=== PATIENT | male | born 1995 | race Caucasian/White ===

== ENCOUNTER 2017-01-08 11:56 | Emergency (ER) | payer BC ==
[2017-01-08 12:55] VITALS: BP 140/77
--- NOTE | 2017-01-08 13:14 | UC ---
Abdominal Pain Male HPI - HPI Summary HPI Summary: pain in RUQ began Monday night, yesterday nausea/vomiting unable to keep food down,same this morning does have a tremor. States he has been drinking 6 beers daily for 3 years - History of Current Complaint Chief Complaint: UCAbdominalPain Stated Complaint: STOMACH PAIN Time Seen by Provider: 01/08/17 13:02 Hx Obtained From: Patient Onset/Duration: Sudden Onset, Lasting Days - 2, Still Present Timing: Constant Severity Initially: Moderate Severity Currently: Moderate Location: Discrete At: RUQ Radiates: No Character: Unable to describe Aggravating Factor(s):: Food, Movement, Deep Breaths Alleviating Factor(s): Nothing Associated Signs And Symptoms: Positive: Decreased Appetite, Nausea, Vomiting - Allergies/Home Medications Allergies/Adverse Reactions: Allergies Allergy/AdvReac Type Severity Reaction Status Date / Time pet dander Allergy Hives Uncoded 01/08/17 12:55 Home Medications: Home Medications NK [No Home Medications Reported] 01/08/17 [History Confirmed 01/08/17] PMH/Surg Hx/FS Hx/Imm Hx Previously Healthy: No Respiratory History Of: Reports: Asthma - Surgical History Surgical History: None - Family History Known Family History: Positive: None Family History: no reported issues in family lineage - Social History Occupation: Student Lives: With Family Alcohol Use: Daily Alcohol Amount: 4-6 beers Substance Use Type: None Smoking Status (MU): Never Smoked Tobacco Review of Systems Constitutional: Negative Skin: Negative Eyes: Negative ENT: Negative Respiratory: Negative Cardiovascular: Negative Gastrointestinal: Abdominal Pain, Vomiting Genitourinary: Negative Motor: Negative Neurovascular: Negative Musculoskeletal: Negative Neurological: Negative - tremor, Other Psychological: Negative All Other Systems Reviewed And Are Negative: Yes Physical Exam Triage Information Reviewed: Yes Appearance: Well-Nourished, Ill-Appearing, Pain Distress Vital Signs: Initial Vital Signs Temp 98.8 F 01/08/17 12:50 Pulse 79 01/08/17 12:50 Resp 16 01/08/17 12:50 BP 140/77 01/08/17 12:50 Pulse Ox 99 01/08/17 12:50 Vital Signs Reviewed: Yes Eye Exam: Normal Eyes: Positive: Conjunctiva Clear ENT Exam: Normal ENT: Positive: Normal ENT inspection, Hearing grossly normal, Pharynx normal, TMs normal. Negative: Nasal congestion, Nasal drainage, Tonsillar swelling, Tonsillar exudate, Trismus, Muffled/hoarse voice Dental Exam: Normal Neck exam: Normal Neck: Positive: Supple, Nontender, No Lymphadenopathy Respiratory Exam: Normal Respiratory: Positive: Chest non-tender, Lungs clear, Normal breath sounds, No respiratory distress, No accessory muscle use Cardiovascular Exam: Normal Abdominal Exam: Normal Abdomen Description: Positive: Soft, Hepatomegaly - 1 fb below ribs Bowel Sounds: Positive: Present Musculoskeletal Exam: Normal Musculoskeletal: Positive: Strength Intact, ROM Intact, No Edema Neurological Exam: Normal Neurological: Positive: Alert, Other: - upper body tremors Psychological Exam: Normal Skin Exam: Normal Abd Pain Male Course/Dx - Course Course Of Treatment: npo, To [facility] With roomate driving - Differential Dx/Clinical Impression Differential Diagnosis/HQI/PQRI: Gall Bladder Disease, Pneumonia, Other - liver Disease, alcohol abuse disorder, acute n/v Provider Diagnoses: Acute nausea/vomiting, alcohol misuse Discharge - Discharge Plan Condition: Guarded Disposition: AGAINST MEDICAL ADVICE
== END 2017-01-08 13:24 | disposition left against medical advice (07) ==
LOC: UCCORT 11:56
DX: R11.2 Nausea with vomiting, unspecified (principal); Z72.89 Other problems related to lifestyle
CPT/HCPCS: 99202; G0463